=== PATIENT | female | born 2000 | race American Indian/Alaskan Native ===

== ENCOUNTER 2018-02-01 08:27 | Emergency (ER) | payer MEDICAID ==
[2018-02-01 08:27] VITALS: BMI 19.2
[2018-02-01] MEDS ORDERED: Sodium Chloride 0.9% 1,000 ML IV ONE (08:51)
--- NOTE | 2018-02-01 08:51 | C.PDOC ---
History Of Present Illness 17 year old female presents to ED for evaluation of RUQ abdominal pain for the last 2 days. Initial onset was RLQ but now stronger in RUQ. Notes pain is constant and localized. Denies fever, n/v/d. Not associated with eating. LMP 2 days ago. Pt was evaluated at [facility] [place] 01/31 for same, "but all they did was check my urine". RUQ PAIN X 2 DAYS. INITIAL ONSET RLQ BUT NOW STRONGER RUQ. CONSTANT LOCALIZED. DENIES FEVER, NVD. LMP 2 DAYS. [facility] APPY 2016. NO ASSOC W EATING. PS WING @ [facility] [place] 01/31 FOR SAME "BUT ALL THEY DID WAS CHECK MY URINE". EXAM MILD DIST NONTOXIC ABD +RUQ TEND SOFT NO R/G REMAINDER NEG Time Seen by Provider: 02/01/18 08:39 Chief Complaint (Nursing): Abdominal Pain History Per: Patient History/Exam Limitations: no limitations Onset/Duration Of Symptoms: Days Current Symptoms Are (Timing): Still Present Location Of Pain/Discomfort: RUQ, RLQ Radiation Of Pain To:: None Quality Of Discomfort: "Pain" Associated Symptoms: denies: Nausea, Vomiting, Diarrhea, Loss Of Appetite, Back Pain, Chest Pain Exacerbating Factors: None Additional History Per: Patient Past Medical History Reviewed: Historical Data, Nursing Documentation, Vital Signs Vital Signs: Last Vital Signs Temp 98.7 F 02/01/18 14:12 Pulse 83 02/01/18 14:12 Resp 18 02/01/18 14:12 BP 111/77 02/01/18 14:12 Pulse Ox 96 02/01/18 14:12 Surgical History: Appendectomy - [facility] Procedures RESECTION OF APPENDIX, OPEN APPROACH (03/09/16) Family History: States: Unknown Family Hx - Social History Hx Alcohol Use: Yes Hx Substance Use: Yes Review Of Systems Except As Marked, All Systems Reviewed And Found Negative. Constitutional: Negative for: Fever, Chills Cardiovascular: Negative for: Chest Pain Respiratory: Negative for: Shortness of Breath Gastrointestinal: Positive for: Abdominal Pain. Negative for: Nausea, Vomiting , Diarrhea, Constipation Genitourinary: Negative for: Dysuria, Frequency, Hematuria Musculoskeletal: Negative for: Back Pain Physical Exam - Physical Exam Appears: Non-toxic, Other (In mild distress) Skin: Normal Color, Warm, Dry Head: Atraumatic, Normacephalic Eye(s): bilateral: Normal Inspection Oral Mucosa: Moist Neck: Supple Cardiovascular: Rhythm Regular, No Murmur Respiratory: Normal Breath Sounds, No Rales, No Rhonchi, No Wheezing Gastrointestinal/Abdominal: Soft, Tenderness (RUQ), No Guarding, No Rebound Back: No CVA Tenderness Extremity: Normal ROM Neurological/Psych: Oriented x3, Normal Speech ED Course And Treatment - Laboratory Results Result Diagrams: 02/01/18 09:15 02/01/18 09:15 Urine POC: Negative O2 Sat by Pulse Oximetry: 98 (RA) Pulse Ox Interpretation: Normal - CT Scan/US Abdomen ultrasound Other Rad Studies (CT/US): Read By Radiologist, Radiology Report Reviewed CT/US Interpretation: Date of service: 02/01/2018. HISTORY: abd pain RUQ RO ACUTE BHAVNA. COMPARISON: None. TECHNIQUE: Sonographic evaluation of the right upper quadrant of the abdomen. FINDINGS: LIVER: Measures 13.5 cm in length. Normal echogenicity of the liver parenchyma. No mass. No intrahepatic bile duct dilatation. GALLBLADDER: Unremarkable. No gallstones. COMMON BILE DUCT: Measures 2.1 mm. No stones. No dilatation. PANCREAS: Unremarkable as visualized. No mass. No ductal dilatation. RIGHT KIDNEY: Measures 9.7 cm in length. Normal echogenicity. No calculus, mass, or hydronephrosis. AORTA: No aneurysmal dilatation. IVC: Unremarkable. OTHER FINDINGS: None . IMPRESSION : Unremarkable limited abdomen ultrasound right upper quadrant abdomen. Progress - Re-Evaluation Re-evaluation Note: 02/01/18 13:46 CO PERSIST PAIN NO IMPROVE W MORPHINE. DOES NOT REQUEST ADDL PAIN MEDS @ THIS TIME. CT REPORT PENDING - Data Reviewed Data Reviewed: Lab, Diagnostic imaging, Old records Medical Decision Making Medical Decision Making: Plan: Blood work Urinalysis Abdomen ultrasound Morphine, Zofran, IV fluids Reassess Disposition Counseled Patient/Family Regarding: Studies Performed, Diagnosis, Need For Followup, Rx Given - Disposition Referrals: Shahram Dumas [Staff Provider] - [facility] [Outside] [facility] [Outside] Disposition: HOME/ ROUTINE Disposition Time: 14:22 Condition: IMPROVED Prescriptions: Acetaminophen with Codeine [Tylenol with Codeine No. 3 300 mg-30 mg] 1 tab PO Q6 PRN #12 tab PRN Reason: Pain, Moderate (4-7) Ciprofloxacin [Cipro] 1 tab PO BID #14 tab Dicyclomine [Bentyl] 20 mg PO TID PRN #12 tab PRN Reason: Pain Metronidazole [Flagyl] 500 mg PO BID #14 tab Instructions: Acute Abdomen (Belly Pain), Adult (DC) Forms: [facility] ([place] [employer] (Telugu) - Clinical Impression Clinical Impression: Ileitis - Scribe Statement The provider has reviewed the documentation as recorded by the Scribe KP All medical record entries made by the Scribe were at my direction and personally dictated by me. I have reviewed the chart and agree that the record accurately reflects my personal performance of the history, physical exam, medical decision making, and the department course for this patient. I have also personally directed, reviewed, and agree with the discharge instructions and disposition.
[2018-02-01] MEDS ORDERED: Morphine 4 MG/ML VIAL ONE (09:00)
[2018-02-01] MEDS ORDERED: Sodium Chloride 0.9% 1,000 ML ONE (09:01)
[2018-02-01 09:07] LABS: SQUAMOUS EPITHIAL 3 /hpf (0-5); URINE BACTERIA RARE (<OCC); URINE BILIRUBIN NEGATIVE (NEGATIVE); URINE BLOOD NEGATIVE (NEGATIVE); URINE CLARITY Hazy (Clear); URINE COLOR Yellow (YELLOW); URINE GLUCOSE (UA) NORMAL (Normal); URINE LEUKOCYTE ESTERASE 1+ Leu/uL (Negative); URINE PROTEIN NEGATIVE (NEGATIVE)
[2018-02-01 09:26] LABS: BASO % 0.4 % (0.0-2.0); EOS % 0.1 % (0.0-4.0); LYMPH # 1.2 K/uL (1.0-4.3); LYMPH % 9.2 % (20.0-40.0); MEAN CORPUSCULAR HEMOGLOBIN 29.9 pg (27.0-31.0); MEAN CORPUSCULAR HGB CONC 33.6 g/dL (33.0-37.0); MEAN PLATELET VOLUME 8.3 fL (7.2-11.7); MONO % 8.3 % (0.0-10.0); NEUT # 10.2 K/uL (1.8-7.0); PLATELET COUNT 300 K/uL (130-400); RBC 4.02 Mil/uL (3.80-5.20); RED CELL DISTRIBUTION WIDTH 12.2 % (11.5-14.5); WHITE BLOOD COUNT 12.5 K/uL (4.8-10.8)
[2018-02-01 09:30] LABS: ALB/GLOB RATIO 1.4 (1.0-2.1); ALBUMIN 4.7 g/dL (3.5-5.0); ALT/SGPT 25 U/L (9-52); AST/SGOT 16 U/L (14-36); BLOOD UREA NITROGEN 8 mg/dL (7-17); CALCIUM 9.7 mg/dl (8.6-10.4); GFR AFRICAN-AMERICAN > 60; GFR NON-AFRICAN AMERICAN > 60; LIPASE 35 U/L (23-300)
[2018-02-01 10:05] LABS: LYMPHOCYTE 12 % (20-40); MONOCYTE 9 % (0-10); NEUTROPHIL 79 % (50-75); PLATELET ESTIMATE NORMAL (NORMAL); TOTAL CELLS COUNTED 100
--- NOTE | 2018-02-01 10:17 | US ---
Date of service: 02/01/2018 HISTORY: abd pain RUQ RO ACUTE BHAVNA COMPARISON: None. TECHNIQUE: Sonographic evaluation of the right upper quadrant of the abdomen. FINDINGS: LIVER: Measures 13.5 cm in length. Normal echogenicity of the liver parenchyma. No mass. No intrahepatic bile duct dilatation. GALLBLADDER: Unremarkable. No gallstones. COMMON BILE DUCT: Measures 2.1 mm. No stones. No dilatation. PANCREAS: Unremarkable as visualized. No mass. No ductal dilatation. RIGHT KIDNEY: Measures 9.7 cm in length. Normal echogenicity. No calculus, mass, or hydronephrosis. AORTA: No aneurysmal dilatation. IVC: Unremarkable. OTHER FINDINGS: None . IMPRESSION: Unremarkable limited abdomen ultrasound right upper quadrant abdomen.
[2018-02-01] MEDS ORDERED: Iohexol 240 (50 ml) PO ONE (10:18)
[2018-02-01] MEDS ORDERED: Iohexol 240 (50 ml) ONE (10:39)
[2018-02-01 14:12] VITALS: BP 111/77; PULSE 83; RESP 18; TEMP 98.7
--- NOTE | 2018-02-01 14:18 | CT ---
Date of service: 02/01/2018 PROCEDURE: CT Abdomen and Pelvis with contrast HISTORY: RUQ/RLQ PAIN SP APPY COMPARISON: None. TECHNIQUE: Following oral and intravenous contrast administration, a CT examination of the abdomen and pelvis performed from the domes of the diaphragms to the symphysis pubis with reformatted datasets provided not only axial but also sagittal and coronal series. Contrast dose: Visipaque 320, 100 cc. Radiation dose: Total exam DLP = 192.00 mGy-cm. This CT exam was performed using one or more of the following dose reduction techniques: Automated exposure control, adjustment of the mA and/or kV according to patient size, and/or use of iterative reconstruction technique. FINDINGS: LOWER THORAX: Unremarkable. LIVER: Unremarkable. No gross lesion or ductal dilatation. GALLBLADDER AND BILE DUCTS: Unremarkable. PANCREAS: Unremarkable. No gross lesion or ductal dilatation. SPLEEN: Unremarkable. ADRENALS: Unremarkable. No mass. KIDNEYS AND URETERS: Unremarkable. No hydronephrosis. No solid mass. VASCULATURE: Unremarkable. No aortic aneurysm. BOWEL: Limited thickening of mid ileum is difficult to completely exclude though right X compartment obscures this area somewhat. All contrast has reached the segment and further clinical correlation is advised. No bowel obstruction is appreciate with large-bowel appearing grossly unremarkable though obscured by retained fecal material. APPENDIX: Appendix not identified insert to the this patient with a known history of prior appendectomy. PERITONEUM: Unremarkable. No free fluid. No free air. LYMPH NODES: Unremarkable. No enlarged lymph nodes. BLADDER: Unremarkable. REPRODUCTIVE: Small left adnexal cyst is suggested 1.3 cm greatest dimension. BONES: No acute fracture. OTHER FINDINGS: None. IMPRESSION: 1. Potential ileitis with remaining bowel unremarkable grossly. Clinically correlate. Crohn's disease is potentially differs diagnosis though other infectious or inflammatory causes are possible. No abscess ascites or free air. 2. Small left adnexal cyst.
[2018-02-01] MEDS ORDERED: Oxycodone/Acetaminophen 5/325 mg Tab PO STA (14:21)
[2018-02-01 14:24] VITALS: O2SAT 98
[2018-02-01] MEDS ORDERED: Oxycodone/Acetaminophen 5/325 mg Tab ONE (14:32)
== END 2018-02-01 14:51 | disposition home or self-care (01) ==
LOC: C.ER 08:27
DX: K52.9 Noninfective gastroenteritis and colitis, unspecified (principal)
CPT/HCPCS: 74177; 76705; 80053; 81001; 83690; 85025; 96361; 96374; 96375; 99284; J2270; J2405; J7030; Q9966